=== PATIENT | female | born 2000 | race Two or more races ===

== ENCOUNTER 2025-01-15 21:36 | Emergency (ER) | payer OTHER ==
[~2025-01-15] VITALS: Ht 162.6 cm; Wt 81.2 kg
[2025-01-15] MEDS ORDERED: CLINDAMYCIN PHOSPHATE 150 MG/ML (600mg) IM STA (22:53)
[2025-01-15] MEDS ORDERED: CLINDAMYCIN PHOSPHATE 150 MG/ML (300mg) ONE (22:59)
== END 2025-01-15 23:13 | disposition home or self-care (01) ==
LOC: ER 21:36
DX: L72.0 Epidermal cyst (principal); Z88.0 Allergy status to penicillin